=== PATIENT | male | born 1990 | race Caucasian/White ===

== ENCOUNTER 2022-07-13 15:05 | Emergency (ER) | payer OTHER ==
[~2022-07-13] VITALS: Ht 182.9 cm; Wt 102.0 kg
[2022-07-13 15:28] VITALS: BP 110/89
[2022-07-13] MEDS ORDERED: ACETAMINOPHEN 500MG TABLET PO ONE (18:00)
== END 2022-07-13 18:57 | disposition home or self-care (01) ==
LOC: ER 15:42
DX: S00.83XA Contusion of other part of head, initial encounter (principal); X58.XXXA Exposure to other specified factors, initial encounter; Y93.89 Activity, other specified; Y92.89 Other specified places as the place of occurrence of the external cause; Y99.8 Other external cause status
CPT/HCPCS: 99282